=== PATIENT | male | born 1930 | race Caucasian/White ===

== ENCOUNTER 2018-07-17 05:49 | Observation (INO) | payer MEDICARE ==
[~2018-07-17] VITALS: Ht 175.3 cm; Wt 114.1 kg
[2018-07-17] MEDS ORDERED: SYNTHROID25 MCG PO (05:56)
[2018-07-17] MEDS ORDERED: ZOCOR40 MG PO (05:56)
[2018-07-17] MEDS ORDERED: FOSINOPRIL SODI20 MG PO (05:57)
[2018-07-17] MEDS ORDERED: ISOSORBIDE MONO30 M1 PO (05:57)
[2018-07-17] MEDS ORDERED: COUMADIN5 MG PO (05:58)
[2018-07-17 06:25] VITALS: BP 155/81
--- NOTE | 2018-07-17 07:23 | NUR ---
PATIENT TRANSPORTED TO FLOOR 0725 VIA .
[2018-07-17 07:44] VITALS: Ht 175.3 cm; Wt 114.1 kg
[2018-07-17] MEDS ORDERED: ULTRAM50 MG PO (08:06)
--- NOTE | 2018-07-17 09:08 | NUR ---
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 STATED THEY DONT HAVE ANY MONITORS.
[2018-07-17 10:32] LABS: BASOPHILS 0.5 % (0-2); EOSINOPHILS 2.5 % (0-7); HEMATOCRIT 40.9 % (42.0-54.0); IMMATURE GRANULOCYTES 0.3 % (0-5); MCH 31.3 pg (26.0-34.0); MCHC 34.2 g/dL (31.0-37.0); MCV 91.3 fL (80.0-100.0); MEAN PLATELET VOLUME 9.6 fL (7.4-10.4); MONOCYTES 9.2 % (2-11); NEUTROPHILS 60.5 % (40-80); PLATELET COUNT 180 10x3/uL (130-400); RBC 4.48 10x6/uL (4.20-6.10); RDW 14.2 % (11.5-14.5); WBC 6.3 10x3/uL (4.8-10.8)
[2018-07-17 11:04] LABS: ALBUMIN 3.2 g/dL (3.4-5.0); ALKALINE PHOSPHATASE 66 U/L (46-116); ALT (SGPT) 23 U/L (10-68); CALC OSMOLALITY 277 mosm/kg (275-300); CALCIUM 8.1 mg/dL (8.5-10.1); CARBON DIOXIDE 22.4 mmol/L (21.0-32.0); CHLORIDE - SERUM 103 mmol/L (98-107); GLUCOSE 141 mg/dL (74-106); POTASSIUM - SERUM 3.7 mmol/L (3.5-5.1); PROTEIN - SERUM 6.1 g/dL (6.4-8.2); SODIUM 137 mmol/L (136-145); UREA NITROGEN 17 mg/dL (7-18); eGFR NON AFRICAN AMERICAN 75 mL/min (90-120)
[2018-07-17 11:20] LABS: CKMB 1.8 U/L (0.0-3.6); CREATINE KINASE 170 UL (21-232)
[2018-07-17 11:24] LABS: TROPONIN-I < 0.017 ng/mL (0.000-0.060)
[2018-07-17 13:49] VITALS: BP 129/79
[2018-07-17 15:40] LABS: CKMB 10.7 U/L (0.0-3.6); CREATINE KINASE 210 UL (21-232)
[2018-07-17 15:44] LABS: TROPONIN-I < 0.017 ng/mL (0.000-0.060)
[2018-07-17 18:34] VITALS: BP 140/82
--- NOTE | 2018-07-17 19:32 | NUR ---
PATIENT RUNNING 79 SR AT THIS TIME. NO PROBLEMS AT THIS TIME. IV INTACT. PROCEDURE AT THIS TIME. NO COMPLAINTS. CALL LIGHT WITHIN REACH.
--- NOTE | 2018-07-17 20:20 | NUR ---
LYING IN BED. ALERT AND ORIENTED X4. DENIES DIZZINESS. TELEMETRY SHOWS SR WITH RATE OF 76. RESP EVEN AND NONLABORED. BBS CTA. PEDAL PULSES WEAK. SALINE LOCK NOTED TO LT FOREARM. TALKATIVE WITH STAFF. DENIES PAIN. ABD OBESE, NONTENDER. BS PRESENT X4 QUADS. LT FOOT PLANTAR IS RED. STATES HIS FEET STAY COLD ALL OF THE TIME. ENCOURAGED TO CALL STAFF FOR ASSISTANCE WITH AMB. PT GIVEN URINAL AND INSTRUCTED TO USE. SR ELEVATED X2. CL IN REACH.
[2018-07-17 21:09] VITALS: BP 125/77
[2018-07-17 21:49] LABS: CKMB 1.6 U/L (0.0-3.6); CREATINE KINASE 235 UL (21-232)
--- NOTE | 2018-07-17 22:00 | NUR ---
TELEMETRY SHOWS SB WITH RATE OF 51. NO DISTRESS. CL IN REACH.
[2018-07-17 22:06] LABS: TROPONIN-I < 0.017 ng/mL (0.000-0.060)
[2018-07-18 00:23] VITALS: BP 129/60
--- NOTE | 2018-07-18 00:51 | NUR ---
RESTING QUIETLY WITH EYES CLOSED. RESP EVEN AND NONLABORED. NO DISTRESS. CL IN REACH.
[2018-07-18 05:09] VITALS: BP 125/77
[2018-07-18 06:10] LABS: BASOPHILS 0.3 % (0-2); EOSINOPHILS 3.9 % (0-7); HEMATOCRIT 40.3 % (42.0-54.0); HEMOGLOBIN 13.8 g/dL (13.5-17.5); IMMATURE GRANULOCYTES 0.2 % (0-5); LYMPHOCYTES 29.4 % (15-50); MCH 31.1 pg (26.0-34.0); MCHC 34.2 g/dL (31.0-37.0); MCV 90.8 fL (80.0-100.0); MEAN PLATELET VOLUME 9.8 fL (7.4-10.4); MONOCYTES 11.3 % (2-11); NEUTROPHILS 54.9 % (40-80); PLATELET COUNT 183 10x3/uL (130-400); RBC 4.44 10x6/uL (4.20-6.10); WBC 6.2 10x3/uL (4.8-10.8)
[2018-07-18 06:29] LABS: ALBUMIN 3.2 g/dL (3.4-5.0); ANION GAP 14.6 mmol/L (8-16); BILIRUBIN - TOTAL 0.62 mg/dL (0.2-1.3); CALCIUM 7.9 mg/dL (8.5-10.1); CARBON DIOXIDE 22.4 mmol/L (21.0-32.0); CREATININE - SERUM 1.2 mg/dL (0.6-1.3); PROTEIN - SERUM 6.2 g/dL (6.4-8.2)
--- NOTE | 2018-07-18 07:30 | NUR ---
PT ASSESSMENT COMPLETE RESTING WELL IN BED WITH NO DISTRESS NOTED VOICES ALL NEEDS TO STAFF CALL LIGHT IN REACH SIDE RAILS UP X 2 NOTED TO HAVE COBAN AROUND PIV SITE TO LEFT FORARM LOOKS TIGHT AND RED REMOVED COBAN WILL FLUSH IV AND CHECK PATENCY
[2018-07-18 08:14] VITALS: BP 137/75
--- NOTE | 2018-07-18 11:00 | NUR ---
PIV FLUSHED AND IS PAINFUL AND LEAKING REMOVED AND RESITED TO TIGHT INNER FORARM WITH 20 GA PIV CATHETER X 1 STICK PER ASEPTIC PROTOCOL. TOLERATED WELL.
[2018-07-18 12:21] VITALS: BP 135/78
[2018-07-18 16:30] VITALS: BP 135/77
--- NOTE | 2018-07-18 16:48 | NUR ---
CALLED [facility] AND LEFT MESSAGE FOR MARCI CHAVEZ APRN TO ADRESS AFIB/ SSS VS STABLE ARRYTHMIA AND DISHARGE HOME MEDS FOR CARDIAC ISSUES
--- NOTE | 2018-07-18 18:49 | NUR ---
I have reviewed this patient and I concur with the Shift Assessment completed by the Licensed Practical Nurse today this shift.
[2018-07-18 21:05] VITALS: BP 106/67
--- NOTE | 2018-07-18 21:41 | NUR ---
AWAKE,ALERT.NO COMPLAITNS VOICED. RESP EVEN AND UNLABORED. SL TO RFA INTACT WITHOUT REDNESS OR EDEMA NOTED.CL IN REACH
--- NOTE | 2018-07-19 02:51 | NUR ---
I have reviewed this patient and I concur with the Shift Assessment completed by the Licensed Practical Nurse today this shift.
--- NOTE | 2018-07-19 04:07 | NUR ---
I have reviewed this patient and I concur with the Shift Assessment completed by the Licensed Practical Nurse today this shift.
[2018-07-19 04:43] VITALS: BP 124/68
[2018-07-19 04:58] LABS: BASOPHILS 0.2 % (0-2); EOSINOPHILS 4.1 % (0-7); HEMATOCRIT 40.8 % (42.0-54.0); HEMOGLOBIN 13.9 g/dL (13.5-17.5); IMMATURE GRANULOCYTES 0.2 % (0-5); LYMPHOCYTES 32.5 % (15-50); MCHC 34.1 g/dL (31.0-37.0); MCV 90.9 fL (80.0-100.0); MEAN PLATELET VOLUME 9.6 fL (7.4-10.4); MONOCYTES 12.6 % (2-11); NEUTROPHILS 50.4 % (40-80); PLATELET COUNT 181 10x3/uL (130-400); RBC 4.49 10x6/uL (4.20-6.10); WBC 6.1 10x3/uL (4.8-10.8)
[2018-07-19 05:22] LABS: ALBUMIN 3.1 g/dL (3.4-5.0); ALKALINE PHOSPHATASE 61 U/L (46-116); ALT (SGPT) 22 U/L (10-68); BILIRUBIN - TOTAL 0.41 mg/dL (0.2-1.3); CALC OSMOLALITY 281 mosm/kg (275-300); CHLORIDE - SERUM 106 mmol/L (98-107); GLUCOSE 114 mg/dL (74-106); POTASSIUM - SERUM 3.9 mmol/L (3.5-5.1); PROTEIN - SERUM 6.3 g/dL (6.4-8.2); SODIUM 140 mmol/L (136-145); UREA NITROGEN 18 mg/dL (7-18); eGFR NON AFRICAN AMERICAN 75 mL/min (90-120)
[2018-07-19 08:47] VITALS: BP 167/80
--- NOTE | 2018-07-19 13:41 | NUR ---
PATIENT RESTING ON LEFT SIDE. WAITING ON DISCHARGE. NO FURTHER NEEDS AT THIS TIME
--- NOTE | 2018-07-19 15:52 | NUR ---
DISCHARGE INSTRUCTIONS GIVEN. PATIENT VERBALIZED UNDERSTANDING. IV THERAPY DC'ED. TIP INTACT NO FURTHER NEEDS AT THIS TIME
== END 2018-07-19 16:23 | disposition home or self-care (01) ==
LOC: D.ER 05:49 → OBSVTIME 06:12 → D.EDHOLD 06:12 → D.MS 06:12
PROVIDERS: Emergency Medicine; ADMIT Internal Medicine Nephrology; ATTEND Internal Medicine Nephrology
DX: I95.9 Hypotension, unspecified (principal); R00.1 Bradycardia, unspecified; I25.10 Atherosclerotic heart disease of native coronary artery without angina pectoris; M19.90 Unspecified osteoarthritis, unspecified site; Z86.718 Personal history of other venous thrombosis and embolism; Z79.01 Long term (current) use of anticoagulants; G89.29 Other chronic pain; M54.9 Dorsalgia, unspecified; I48.0 Paroxysmal atrial fibrillation; R55 Syncope and collapse